=== PATIENT | female | born 1975 | race Caucasian/White ===

== ENCOUNTER 2020-06-28 16:54 | Emergency (ER) | payer OTHER ==
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
[2020-06-28 19:04] VITALS: BP 122/82; TEMP 97.4; O2SAT 99
== END 2020-06-28 19:27 | disposition home or self-care (01) ==
LOC: ER 16:54
DX: M54.5 Low back pain (principal); M54.2 Cervicalgia; M25.511 Pain in right shoulder; V49.49XA Driver injured in collision with other motor vehicles in traffic accident, initial encounter; Y92.410 Unspecified street and highway as the place of occurrence of the external cause